=== PATIENT | male | born 1985 | race Caucasian/White ===

== ENCOUNTER 2017-09-09 10:09 | Emergency (ER) | payer OTHER ==
[2017-09-09] MEDS ORDERED: Lidocaine 1% PF 5 ML VIAL ONE (10:24)
[2017-09-09] MEDS ORDERED: Bacitracin Zinc 1 Packet ONE (11:26)
== END 2017-09-09 11:30 | disposition home or self-care (01) ==
LOC: SCSER 10:09
DX: S61.012A Laceration without foreign body of left thumb without damage to nail, initial encounter (principal); F41.9 Anxiety disorder, unspecified; F32.9 Major depressive disorder, single episode, unspecified; F43.10 Post-traumatic stress disorder, unspecified; W27.8XXA Contact with other nonpowered hand tool, initial encounter; Y99.0 Civilian activity done for income or pay
CPT/HCPCS: 12001; J2001

== ENCOUNTER 2018-06-02 23:13 | Emergency (ER) | payer SELFPAY ==
[2018-06-02 23:52] LABS: #Basophils 0.1 thou/uL (0.0-0.2); #Eosinphils 0.8 thou/uL (0.0-0.7); #Lymphocytes 2.9 thou/uL (1.20-3.40); #Monocytes 0.7 thou/uL (0.11-0.59); #Neutrophils 4.7 thou/uL (1.40-6.50); %Basophils 1.1 % (0.0-1.0); %Eosinophils 8.8 % (0.0-10.0); %Monocytes 7.3 % (0.0-10.0); %Neutrophils 50.9 % (42.0-75.0); Hemoglobin 13.9 g/dL (14.0-18.0); Mean Corpuscular HGB CONC 33.6 g/dL (32.0-36.0); Mean Corpuscular Hemoglobin 28.8 pg (27.0-31.0); Mean Corpuscular Volume 85.5 fL (78.0-98.0); Platelet Count 239 thou/uL (130-400); RBC Distribution Width 11.6 % (11.5-14.5); Red Blood Cell (RBC) Count 4.81 mill/uL (4.70-6.10); White Blood Cell (WBC) Count 9.2 thou/uL (4.8-10.8)
[2018-06-03] LABS: Bilirubin Negative (Negative); Blood, Urine Negative (Negative); Clarity CLEAR (Clear); Glucose, Urine (Dipstick) Negative (Negative); Leukocyte Negative (Negative); Nitrite Negative (Negative); Protein, Urine (Dipstick) Negative (Neg-Trace); Specific Gravity, Urine 1.026 (1.002-1.036); pH, Urine 6.5 (5.0-9.0)
[2018-06-03 00:12] LABS: ALT (SGPT) 12 U/L (8-55); AST (SGOT) 19 U/L (5-34); Albumin 4.5 g/dL (3.5-5.0); Alkaline Phosphatase 70 U/L (40-150); Anion Gap 11 mmol/L (10-20); BUN (Urea Nitrogen) 23 mg/dL (8.9-20.6); Bilirubin, Total 0.3 mg/dL (0.2-1.2); Calc. Creatinine Clearance 0 mL/min (70-130); Calcium 9.2 mg/dL (7.8-10.44); Carbon Dioxide 26 mmol/L (22-29); Chloride 105 mmol/L (98-107); Estimated GFR-MDRD 69; Globulin 2.6 g/dL (2.4-3.5); Glucose 118 mg/dL (70-105); Potassium 3.8 mmol/L (3.5-5.1); Protein, Total 7.1 g/dL (6.0-8.3); Sodium 138 mmol/L (136-145)
[2018-06-03] MEDS ORDERED: Ondansetron ODT 4 MG TAB ONE (01:43)
[2018-06-03] MEDS ORDERED: Ketorolac Tromethamine 30 MG/ML VIAL ONE (01:43)
[2018-06-03] MEDS ORDERED: cefTRIAXone\\ROCEPHIN 250 MG VIAL ONE (01:47)
[2018-06-03] MEDS ORDERED: Lidocaine 1% PF 5 ML VIAL ONE (01:47)
--- NOTE | 2018-06-03 07:21 | ULT ---
SCROTAL ULTRASOUND WITH PRADO SCALE AND DOPPLER COLOR FLOW IMAGING: CLINICAL INDICATION: Right hemiscrotal pain new onset. FINDINGS: Doppler evaluation does reveal flow to each testis without evidence of torsion. No intratesticular m ass. Mild, relative hyperemia of the right epididymis is present, although the right epididymis is n ot significantly enlarged. Small volume hydroceles are seen bilaterally. IMPRESSION: 1. No evidence of testicular torsion or mass. 2. Slight relative hyperemia of the right epididymis which may reflect changes of mild epididymitis in the correct clinical context. 3. Small volume hydrocele. POS: ADOLFO
[2018-06-05 21:28] LABS: Chlam.trachomatis by PCR,Urine Not Detected (NotDetected)
== END 2018-06-03 02:28 | disposition home or self-care (01) ==
LOC: ERS 23:13
DX: N43.3 Hydrocele, unspecified (principal); N45.1 Epididymitis; F41.9 Anxiety disorder, unspecified; F43.10 Post-traumatic stress disorder, unspecified
CPT/HCPCS: 36415; 76870; 80053; 81003; 85025; 87491; 87591; 93976; 96372; J0696; J1885; J2001; Q0162

== ENCOUNTER 2019-05-31 08:25 | Observation (INO) | payer OTHER ==
[2019-05-31] MEDS ORDERED: HYDROcodone/Acetaminophen 10/325 mg Tablet ONE (09:04)
[2019-05-31] MEDS ORDERED: Ondansetron PF 4 MG/2 ML Vial ONE ×2 (09:21→14:00)
[2019-05-31] MEDS ORDERED: Morphine 4 MG/ML VIAL ONE (09:21)
[2019-05-31] MEDS ORDERED: Fentanyl 100 MCG/2 ML VIAL ONE (11:23)
[2019-05-31] MEDS ORDERED: Ketorolac Tromethamine 30 MG/ML VIAL ONE (11:23)
[2019-05-31] MEDS ORDERED: Cyclobenzaprine 10 MG TAB ONE (11:32)
[2019-05-31] MEDS ORDERED: Diazepam 10 MG/2 ML SYRINGE ONE (12:20)
--- NOTE | 2019-05-31 14:25 | MRI ---
MRI CERVICAL SPINE WITHOUT CONTRAST: Date: 05/31/2019 COMPARISON: None. HISTORY: Patient woke up 3 days ago with bilateral arm numbness and weakness. TECHNIQUE: Multiplanar, multisequence MR images were obtained of the cervical spine without contrast. FINDINGS: The vertebral bodies and intervertebral discs demonstrate normal height and alignment without fractur e or subluxation. There is a well-circumscribed focus of high T2 signal within the C6 vertebral body which likely represents a hemangioma. The visualized cord demonstrates normal signal throughout. The prevertebral and paraspinal soft tissu es are unremarkable. The craniocervical junction is unremarkable. No significant posterior bulge or protrusion is seen throughout the cervical spine. No significant po sterior facet arthrosis. There is moderate narrowing of the central canal from C3-4 through C5-6 seco ndary to congenitally short pedicles. No neural foraminal stenosis is seen. IMPRESSION: 1. No signal abnormality seen in the cervical cord. 2. No significant degenerative changes. 3. 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 POS: RUBEN
[2019-05-31 15:30] LABS: Hemoglobin 13.5 g/dL (14.0-18.0); Mean Corpuscular HGB CONC 33.4 g/dL (32.0-36.0); Mean Corpuscular Hemoglobin 28.6 pg (27.0-31.0); Mean Corpuscular Volume 85.8 fL (78.0-98.0); Mean Platelet Volume 5.9 fL (7.4-10.4); Platelet Count 172 thou/uL (130-400); RBC Distribution Width 13.1 % (11.5-14.5); White Blood Cell (WBC) Count 9.7 thou/uL (4.8-10.8)
[2019-05-31 15:50] LABS: Anion Gap 12 mmol/L (10-20); BUN (Urea Nitrogen) 18 mg/dL (8.9-20.6); Band 24 % (5-11); Calc. Creatinine Clearance 0 mL/min (70-130); Calcium 8.5 mg/dL (7.8-10.44); Carbon Dioxide 27 mmol/L (22-29); Chloride 106 mmol/L (98-107); Eosinophils 3 % (0-10); Estimated GFR-MDRD Greater than 90; Glucose 123 mg/dL (70-105); Lymphocytes 14 % (21-51); MDiff Complete? YES; Monocytes 7 % (0-10); Neutrophil 12 % (42-75); Platelet Morphology Comment Appears Adequate; Polychromasia SLIGHT = 2-3 cells (100X) (0-2/hpf); Potassium 3.7 mmol/L (3.5-5.1); Reactive Lymphocytes 40 % (0-10); Reflex for Review?? YES; Sodium 141 mmol/L (136-145)
[2019-05-31] MEDS ORDERED: Gabapentin 100 MG CAP PO SCH (17:15)
--- NOTE | 2019-05-31 17:17 | RAD ---
THREE VIEWS OF THE RIGHT SHOULDER: COMPARISON: None. HISTORY: Right shoulder pain for one week. FINDINGS: Three views of the right shoulder shows no evidence of acute fracture or dislocation. No degenerative changes are seen. No soft tissue swelling is seen. IMPRESSION: No evidence of acute osseous abnormality. POS: EAA
[2019-05-31] MEDS ORDERED: Naproxen 500 MG TAB PO SCH (17:30)
[2019-05-31] MEDS ORDERED: Lidocaine 5% Patch TD SCH ×2 (17:45→21:00)
[2019-05-31] MEDS: Lidocaine 5% Patch TD SCH (19:24)
[2019-05-31 19:29] VITALS: BMI 23.8
[2019-05-31] MEDS ORDERED: Ondansetron ODT 4 MG TAB PO PRN (20:05)
[2019-05-31] MEDS ORDERED: Ondansetron PF 4 MG/2 ML Vial IVP PRN (20:05)
[2019-05-31] MEDS ORDERED: Acetaminophen 650 MG Suppository PR PRN (20:05)
--- NOTE | 2019-05-31 20:12 | PDOC.HHP ---
Hospitalist HPI - History of Present Illness Right arm pain/weakness History of Present Illness: Patient presents complaining of severe pain in right shoulder and arm for the last week with associated weakness and an area of numbness on the lateral aspect of the shoulder. Denies any trauma or injury. Complains of right neck pain. He has not seen his primary care physician. Per Dr. Vale who is the attending in the ED but did not see the patient, he saw patient at [facility] a week ago and patient with severe pain not responding to multiple interventions. Patient believed to be potentially drug seeking. 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 States in the past he has had similar pain on the left arm. ED Course: MRI cervical spine: 1. No signal abnormality seen in the cervical cord. 2. No significant degenerative changes. 3. 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 Right shoulder Xray was negative. Multiple medications given in the ED including cyclobenzaprine, diazepam, toradol, fentanyl, morphine and norco. Lidocaine patches placed as well. Patient states no relief. Hospitalist ROS - Review of Systems Constitutional: reports: other (reduced appetite since yesterday due to pain). denies: fever, chills, sweats, weakness, malaise Eyes: denies: pain, vision change, conjunctivae inflammation, eyelid inflammation, redness, other ENT: denies: ear pain, ear discharge, nose pain, nose discharge, nose congestion , mouth pain, mouth swelling, throat pain, throat swelling, other Respiratory: denies: cough, dry, shortness of breath, hemoptysis, SOB with excertion, pleuritic pain, sputum, wheezing, other Cardiovascular: denies: chest pain, palpitations, orthopnea, paroxysmal noc. dyspnea, edema, light headedness, other Gastrointestinal: denies: nausea, vomiting, abdominal pain, diarrhea, constipation, melena, hematochezia, other Genitourinary: denies: dysuria, frequency, incontinence, hematuria, retention, other Musculoskeletal: reports: neck pain, shoulder pain (right shoulder), arm pain ( right arm) Neurological: reports: weakness (with abduction and internal rotation of shoulder, increased pain in shoulder with pronation of arm), numbness ( paresthesias on right lateral shoulder) - Medication Medications: Active Medications Generic Name Dose Route Start Last Admin Trade Name Freq PRN Reason Stop Dose Admin Lidocaine 1 patch 06/01/19 21:00 05/31/19 19:24 Lidoderm 5% Patch TD 1 patch HS GIBSON Administration ALLERGIES: Sulfa drugs HOME MEDICATIONS: None. Hospitalist History - Past Medical History Source: patient Psych: reports: Anxiety, Depression - Past Surgical History Past Surgical History: reports: Other (Mastoidectomy.) - Family History Family History: reports: no pertinent history - Social History Smoking Status: Never smoker Alcohol: reports: None Drugs: reports: none Activity level: independent ambulation - Exam General - other findings: appears to be in discomfort, holding his Rt shoulder and wincing/groaning Eye: PERRL ENT: normocephalic atraumatic, dry oral mucosa Neck: supple, no lymphadenopathy Heart: RRR, no rubs, normal peripheral pulses Respiratory: CTAB, no wheezes, no rales, no ronchi, normal chest expansion, no tachypnea Gastrointestinal: soft, non-tender, non-distended, normal bowel sounds, no guarding, no rigidity Extremities: no edema Extremities - other findings: Right arm without any brusing, swelling, erythema or other abnormalities Neurological - other findings: right arm weak with abduction against resistance , able to flex/extend arms Musculoskeletal - other findings: 4/5 strength in RUE, full ROM in left arm Psychiatric: A&O x 3 Hospitalist Results - Labs Result Diagrams: 05/31/19 15:19 05/31/19 15:19 Lab results: WBC 9.7 thou/uL (4.8-10.8) 05/31/19 15:19 Hgb 13.5 g/dL (14.0-18.0) L 05/31/19 15:19 Hct 40.3 % (42.0-52.0) L 05/31/19 15:19 MCV 85.8 fL (78.0-98.0) 05/31/19 15:19 Plt Count 172 thou/uL (130-400) 05/31/19 15:19 Band Neuts % (Manual) 24 % (5-11) H 05/31/19 15:19 Sodium 141 mmol/L (136-145) 05/31/19 15:19 Potassium 3.7 mmol/L (3.5-5.1) 05/31/19 15:19 Chloride 106 mmol/L (98-107) 05/31/19 15:19 Carbon Dioxide 27 mmol/L (22-29) 05/31/19 15:19 BUN 18 mg/dL (8.9-20.6) 05/31/19 15:19 Creatinine 0.86 mg/dL (0.7-1.3) 05/31/19 15:19 Glucose 123 mg/dL (70-105) H 05/31/19 15:19 Calcium 8.5 mg/dL (7.8-10.44) 05/31/19 15:19 Hospitalist H&P A/P - Problem (1) Neck pain on right side Code(s): M54.2 - CERVICALGIA Status: Acute (2) Right shoulder pain Code(s): M25.511 - PAIN IN RIGHT SHOULDER Status: Acute (3) Appetite loss Code(s): R63.0 - ANOREXIA Status: Acute (4) Anxiety and depression Code(s): F41.9 - ANXIETY DISORDER, UNSPECIFIED; F32.9 - MAJOR DEPRESSIVE DISORDER, SINGLE EPISODE, UNSPECIFIED Status: Chronic - Plan Plan: Just given Naproxen and Gabapentin by RN, as ordered by Dr. Elliott. Will hold Toradol until later this evening, recommended by Dr. Hernandez. IV fluids, clinically dry and with reduced oral intake since yesterday. MRI right shoulder to assess for rotator cuff injury. Consult placed to physical therapy. Further work-up/management as per Dr. Elliott in the AM. Will check UDS. CODE STATUS FULL Surrogate decision maker: His Polina Schmidt.
[2019-05-31] MEDS: Sodium Chloride 0.9% 1,000 ML IV SCH (20:25)
[2019-05-31] MEDS: Acetaminophen 325 MG TAB PO PRN (22:01)
[2019-05-31] MEDS ORDERED: diphenhydrAMINE 12.5 MG/5 ML UDCUP PO SCH (22:15)
[2019-05-31] MEDS: Ketorolac Tromethamine 30 MG/ML VIAL IVP SCH (23:03)
[2019-05-31] MEDS ORDERED: Melatonin 3 MG TAB PO PRN (23:26)
[2019-06-01] MEDS ORDERED: Zolpidem Tartrate 5 MG TAB PO SCH (04:30)
[2019-06-01] MEDS: Ketorolac Tromethamine 30 MG/ML VIAL IVP SCH ×3 (05:05→17:45)
[2019-06-01 05:53] LABS: Hemoglobin 13.3 g/dL (14.0-18.0); Mean Corpuscular HGB CONC 33.8 g/dL (32.0-36.0); Mean Corpuscular Hemoglobin 29.1 pg (27.0-31.0); Mean Corpuscular Volume 86.1 fL (78.0-98.0); Mean Platelet Volume 6.1 fL (7.4-10.4); Platelet Count 191 thou/uL (130-400); RBC Distribution Width 13.2 % (11.5-14.5); Red Blood Cell (RBC) Count 4.56 mill/uL (4.70-6.10); White Blood Cell (WBC) Count 9.3 thou/uL (4.8-10.8)
[2019-06-01 05:58] LABS: Anion Gap 13 mmol/L (10-20); BUN (Urea Nitrogen) 21 mg/dL (8.9-20.6); Calc. Creatinine Clearance 115 mL/min (70-130); Calcium 8.2 mg/dL (7.8-10.44); Carbon Dioxide 22 mmol/L (22-29); Chloride 107 mmol/L (98-107); Estimated GFR-MDRD Greater than 90; Glucose 113 mg/dL (70-105); Sodium 138 mmol/L (136-145)
[2019-06-01 06:12] LABS: Band 7 % (5-11); Eosinophils 1 % (0-10); Lymphocytes 40 % (21-51); MDiff Complete? YES; Metamyelocyte 1 % (0-0); Monocytes 13 % (0-10); Neutrophil 27 % (42-75); Reactive Lymphocytes 11 % (0-10)
--- NOTE | 2019-06-01 08:09 | MRI ---
EXAM: MRI right shoulder PROVIDED CLINICAL HISTORY: Weakness and numbness COMPARISON: None FINDINGS: The components of the rotator cuff appear intact. The long head biceps tendon appears intact and norm ally located. The glenoid labrum and glenohumeral articular cartilage are suboptimally evaluated in the absence of joint distention but appear grossly normal. The amount of fluid within the glenohumera l joint is physiologic. No significant subacromial subdeltoid bursal fluid. Correlate clavicular joint appears unremarkable. There is mild patchy signal alteration on fluid sensitive sequences invol ving the posterior aspects of the deltoid muscle. Regional marrow and muscular signal appear otherwise normal. IMPRESSION: 1. No evidence for internal derangement. 2. Mild patchy signal alteration on fluid sensitive sequences involving the posterior right deltoid m uscle. Differential considerations would include muscular strain, denervation and nonspecific myositis.
[2019-06-01] MEDS: Acetaminophen 325 MG TAB PO PRN (08:48)
[2019-06-01] MEDS: Lidocaine Patch Removal 1 EACH TOP SCH (09:01)
[2019-06-01] MEDS: Gabapentin 300 MG CAP PO SCH ×2 (11:27→11:39)
[2019-06-01] MEDS ORDERED: tiZANidine HCl 4 MG TAB PO SCH ×3 (11:30→21:00)
[2019-06-01] MEDS ORDERED: predniSONE 20 MG TAB PO SCH (11:30)
[2019-06-01] MEDS: Sodium Chloride 0.9% 1,000 ML IV SCH (13:13)
--- NOTE | 2019-06-01 14:26 | CON ---
DATE OF CONSULTATION: This is Daniel Hlal PA-C dictating a report for Catrachito Engle MD. We were asked by our [facility] Hospitalist Service to see the patient. The patient for the last week and a half to 2 weeks has had this nontraumatic pain that varies from the right shoulder into his neck and occasionally into his forearm, but for the most part, it goes down from his neck and the lateral deltoid about mid upper arm and it has gotten progressively worse. He has tried Numersous different medications. He is on gabapentin. He got some steroids when he was outpatient, tramadol, some pain medications, anti-inflammatories, all of these appear not to touch his pain. He says he has a constant 7 and ramps up to 10. He is an EMT. He has not had any traumatic injuries or any injuries whatsoever that he can recall. He does note that he had some odd virus in the they say (the ) caused some " nerve damage to the upper arms," but he is unable to recall what this could have been. He has sensations down that arm. He can move everything from the elbow distally, but anything with movement of that neck or shoulder definitely is miserably painful. ALLERGIES: SULFA DRUGS. HOME MEDICATIONS: None. PAST MEDICAL HISTORY: Some anxiety and depression. PAST SURGICAL HISTORY: Mastoidectomy. FAMILY HISTORY: For this event is noncontributory. SOCIAL HISTORY: , children. Works as an EMT. No alcohol or nicotine products. No drug use whatsoever. REVIEW OF SYSTEMS: Only positive currently for pain. Otherwise, he is a healthy individual. Rest of review of systems negative. PHYSICAL EXAMINATION: NEUROLOGIC: Well-nourished, well-developed appearing male in obvious appearing distress. Speech is clear. He does have few bouts of moaning and tearfulness while I am talking to him, otherwise his speech is clear. Affect is okay. He is pleasant for the condition he is currently in. Oriented x3. HEENT: Face symmetric. Tongue midline. Normocephalic. NECK: Definitely listing to the right a little bit with some obvious muscle spasms. Movement of neck does increase pain to the neck and shoulder. EXTREMITIES: Upper extremities, looking at patient, he does have his right shoulder drop. This appears to be less painful from him, but otherwise looking at his upper extremities are equal size, shape, symmetry. Normal bulk and tone. Active passive range of motion of any of the upper arm and deltoid muscle group, whatsoever cause him pain. He is not able to rotate at all. Abduction and adduction are really painful. Palpation from the cervical musculature into the deltoid is quite tender. Audiometric Technician strength equal. Interosseous strength is great. Reflexes are diminished on the right compared to the left. He has a negative Carola's. Lower extremities; equal size, shape, symmetry. Normal bulk and tone. RESPIRATORY: No acute distress, 16 a minute. DIAGNOSTIC DATA: MRI cervical, for the most part, he has some degenerative changes, but otherwise no definitive reason for why he would have radiculopathy in that right upper extremity. Shoulder x-ray is negative. Shoulder MRI shows a little bit of deltoid myositis, but it is quite minimal. ASSESSMENT: Right upper extremity pain. PLAN: He does not have any clear surgical need. After going over the shoulder MRI with Dr. Engle, there is definitely no shoulder pathology that needs to be repaired. I did talk to Dr. Romero regarding the cervical MRI and he does not believe there is a surgical need there also or pathology that would be causing his pain, might talk to Dr. Elliott. I have explained the situation from our standpoint, he can go on some steroids. I did order a sedimentation rate and C-reactive protein and a sling, maybe this will help him. I definitely think he needs some physical therapy, occupational therapy, could a cervical epidural steroid injection help possibly, but we will see if normal med management, physical therapy, and occupational therapy can give him any relief. We will follow from the periphery, but we will review his labs to see how he is doing with PT. Job ID: [id number] [facility]
[2019-06-01] MEDS ORDERED: Gabapentin 300 MG CAP PO SCH (15:00)
--- NOTE | 2019-06-01 15:40 | PDOC.HOSPP ---
- Subjective Encounter Date: 06/01/19 Encounter Time: 12:00 Subjective: The patient reports severe right shoulder pain, started earlier this month. Stated that morphine helped slightly. No relief with toradol. He states gabapentin at high doses made him feel psychotic. He has not tried tizanidine. He states the pain is now spreading to his left side. 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 Per ortho, he will try to talk to Dr. Keenan and neurosurgery due to concerns of bone spurs in his neck causing pain. Dr. Romero stated that this was nonsurgical Per GEOCHEMIST, patient has received 7 day prescription of tramadol on 05/22 with valium and 2 day prescription of norco on 05/27 - Objective Vital Signs & Weight: Vital Signs (12 hours) Temp Pulse Resp BP Pulse Ox 06/01/19 04:38 97.7 F 82 18 136/84 98 Weight Admit Weight 156 lb 12.8 oz Weight 156 lb 12.8 oz Result Diagrams: 06/01/19 05:03 06/01/19 05:03 Hospitalist ROS - Review of Systems Constitutional: denies: fever, chills - Medication Medications: Active Medications Generic Name Dose Route Start Last Admin Trade Name Freq PRN Reason Stop Dose Admin Acetaminophen 650 mg 05/31/19 20:05 06/01/19 08:48 Tylenol PO 650 mg Q4H PRN Administration Headache/Fever/Mild Pain (1-3) Sodium Chloride 1,000 mls @ 65 mls/hr 05/31/19 20:15 06/01/19 13:13 Normal Saline 0.9% IV 1,000 mls .[id number] GIBSON Administration Ketorolac Tromethamine 15 mg 05/31/19 23:59 06/01/19 11:31 Toradol IVP 06/05/19 23:59 15 mg Q6HR GIBSON Administration Miscellaneous Medication 1 each 06/01/19 09:00 06/01/19 09:01 Lidocaine Patch Removal TOP Not Given DAILY GIBSON - Exam General Appearance: NAD, awake alert Eye: PERRL, anicteric sclera ENT: normocephalic atraumatic, no oropharyngeal lesions Neck: supple, symmetric, no JVD Heart: RRR, no murmur, no gallops, no rubs Respiratory: CTAB, no wheezes, no rales, no ronchi, rales Gastrointestinal: soft, non-tender, non-distended Extremities: no cyanosis, no clubbing, no edema Skin: normal turgor, no lesions, no rashes Neurological: cranial nerve grossly intact, normal sensation to touch, no focal deficits, no new deficit Neurological - other findings: pt unable to lift up his right arm due to pain. Musculoskeletal: normal tone, normal strength, no muscle wasting Hosp A/P - Plan 34 year old with right shoulder pain/neck pain Right shoulder pain/neck pain - MRI of right shoulder shows no significant abnormality. MRI cervical spine normal but shows some bone spurs - orthopedics consulted, recommended medrol dose pack and tizanidine - will try flexeril prn as well -toradol prn for pain - CRP elevated
[2019-06-01] MEDS ORDERED: Cyclobenzaprine 10 MG TAB PO PRN (15:43)
[2019-06-01] MEDS ORDERED: Diclofenac 1% 100 GM GEL TP SCH (18:45)
[2019-06-01 19:13] LABS: Medtox Reader # READER 4; Phencyclidine (PCP) Not Detected (NotDetected); THC/Cannabinoid Screen Not Detected (NotDetected)
[2019-06-01 19:14] LABS: Amphetamine Not Detected (NotDetected); Barbiturates Screen Not Detected (NotDetected); Benzodiazepine Screen Detected (NotDetected); Cocaine Metabolite Screen Not Detected (NotDetected); Medtox Control Line Valid? VALID (VALID); Methadone Not Detected (NotDetected); Methamphetamine Not Detected (NotDetected); Opiate Screen Detected (NotDetected); Oxycodone Screen Not Detected (NotDetected); Tricyclic Screen Not Detected (NotDetected)
[2019-06-01] MEDS: Diclofenac 1% 100 GM GEL TP SCH (20:28)
[2019-06-01] MEDS: Capsaicin 0.025% Cream 60 gm Tube TOP SCH (20:29)
[2019-06-01] MEDS: Gabapentin 100 MG CAP PO SCH (20:30)
[2019-06-01] MEDS: Lidocaine 5% Patch TD SCH (20:30)
[2019-06-01] MEDS ORDERED: diphenhydrAMINE 25 MG CAP PO SCH (22:30)
[2019-06-02] MEDS: Ketorolac Tromethamine 30 MG/ML VIAL IVP PRN ×2 (05:19→13:47)
[2019-06-02] MEDS: Acetaminophen 325 MG TAB PO PRN (05:21)
[2019-06-02] MEDS ORDERED: Morphine 4 MG/ML VIAL SLOW IVP SCH (05:45)
[2019-06-02] MEDS: tiZANidine HCl 4 MG TAB PO SCH ×2 (08:00→15:23)
[2019-06-02] MEDS: Gabapentin 100 MG CAP PO SCH ×2 (08:00→15:23)
[2019-06-02] MEDS: Lidocaine Patch Removal 1 EACH TOP SCH (08:01)
[2019-06-02] MEDS: Diclofenac 1% 100 GM GEL TP SCH ×2 (08:02→13:41)
[2019-06-02 11:39] VITALS: BP 112/73; TEMP 97.9
[2019-06-02] MEDS: Capsaicin 0.025% Cream 60 gm Tube TOP SCH ×2 (12:16→15:23)
--- NOTE | 2019-06-02 12:58 | DIS ---
DATE OF ADMISSION: 05/31/2019 DATE OF DISCHARGE: 06/02/2019 DISCHARGE DIAGNOSES: 1. Right arm and neck pain, possibly secondary to congenital short pedicles, degenerative disk disease with cervical radiculopathy versus viral myositis 2. Anemia. BRIEF HISTORY OF PRESENT ILLNESS: This is a 34-year-old male with no past medical history, who had presented with 1-week history of severe neck pain and right arm pain. The patient previously had gotten a prescription for Valium and tramadol on 05/22 with mild relief, however, he was not able to sleep and the pain continued to get worse. He described the pain as a burning pain radiating down his right arm. The patient stated that he had a previous episode similar to this, except at that time, he had fever and swollen axillary lymph nodes. He stated this was similar to prior shingles attack, except this time he did not have the lymphadenopathy or the fever. He went to [facility] again subsequently on the and received a two-day supply of [place]. Due to worsening weakness of his right arm, he presented to the ER. He had an MRI of his cervical spine which showed congenitally short pedicles in the ER with mild C5-C6 and C3-C4 narrowing of the central canal. He was given IV pain medications without relief and was admitted for further workup. HOSPITAL COURSE: Right arm/neck pain, likely secondary to cervical radiculopathy from congenitally short pedicles versus mild spinal stenosis versus viral myositis: The patient underwent a shoulder x-ray on the , which showed no evidence of acute osseous abnormality. He then underwent an upper extremity MRI of the shoulder, which showed no evidence of internal derangement and mild patchy signal alteration. CRP was elevated at 1.16 and ESR was normal. Orthopedics was consulted and felt that his pain was most likely originating from his neck due to his congenitally short pedicles. Daniel Hall with orthopedics spoke with Neurosurgery, who stated that this was non operable. I did speak with Pain Management about possibly doing a nerve block or epidural steroid injection; however, they are currently not doing any of these procedures at this time due to the harrison virus outbreak. The patient did report relief in his pain with tizanidine. He did not want gabapentin due to it making him "feel crazy."He was also prescribed lidocaine patch and capsaicin cream and diclofenac gel with mild improvement in his pain and will be discharged with these. Due TO CRP elevation, there was concern about myositis. He got prednisone 20 mg here and was advised to resume this daily for another 7 days. He was also given a prescription for Valtrex in the event that this is postherpetic neuralgia, which he can take for 7 days. He should follow up with his PCP in a week. He was also seen by occupational therapy who recommended outpatient massage therapist or chiropractor. Anemia: The patient had a hemoglobin of 13.3. His vitamin B12 was elevated and folate levels were normal. He should have this further worked up as an outpatient. Right arm pain: The patient was seen by Physical Therapy and Occupational Therapy. Currently trying to see if they can arrange him to get OT as an outpatient. DISCHARGE PHYSICAL EXAMINATION: VITAL SIGNS: Temperature 97.9, heart rate 75, respiratory rate 16, O2 saturation 96%, blood pressure 112/73. GENERAL: The patient is alert, awake, and oriented x3. CVS: Regular rate and rhythm with no murmurs, rubs, or gallops. LUNGS: Clear to auscultation bilaterally. ABDOMEN: Positive bowel sounds, soft, nontender, nondistended. NECK: No tenderness to palpation. EXTREMITIES: The patient does have some mild swelling noted in his right trapezius muscle that is slightly tender to palpation. He is unable to lift up his right arm due to pain. His reflexes are 1+ symmetrically bilaterally. He has intact sensation in both extremities. He has full range of motion of his left arm. He does not seem to have any tenderness on his right shoulder. Passive flexion extension of his elbow does not produce pain. PERTINENT LABORATORY DATA: CBC 05/31: Hemoglobin 13.3, hematocrit 39.3, white count 9.3, platelet count 191. BMP 05/31: Unremarkable. CRP: 1.16. B12: 1002. Folate: 9.0. U-tox: Positive for opiates and benzodiazepine. PERTINENT IMAGING: Shoulder X-ray 05/30: No evidence of acute osseous abnormality. MRI of the cervical spine without contrast 05/30: Shows moderate narrowing of the central canal from C3-C4-C5-C6 secondary to congenitally short pedicles. No significant degenerative changes. MRI of the upper extremity 05/31: Mild patchy signal alteration on fluid sensitive sequences involving the posterior right deltoid muscle. Differentials conclude muscular strain, denervation and nonspecific myositis. DISCHARGE CONDITION: Stable. ACTIVITY: As tolerated. DIET: Regular diet. DISCHARGE MEDICATIONS: New prescriptions: 1. Tizanidine 2 mg p.o. b.i.d. p.r.n. 2. Valtrex 1 mg p.o. t.i.d. for 7 days. 3. Lidocaine patch daily. 4. Diclofenac 2 g topical q.i.d. 5. Capsaicin topical t.i.d. DISCHARGE INSTRUCTIONS: The patient is to follow up with his PCP in a week. He should get a repeat CBC to follow up his anemia. He is advised that his pain may take a month to go away. Job ID: [id number] [facility]
== END 2019-06-02 15:20 | disposition home or self-care (01) ==
LOC: ERS 08:25 → T4-A 16:11
PROVIDERS: ADMIT Internal Medicine; ATTEND Internal Medicine
DX: M54.2 Cervicalgia (principal); R63.0 Anorexia; M25.511 Pain in right shoulder; D64.9 Anemia, unspecified; F41.9 Anxiety disorder, unspecified; F32.9 Major depressive disorder, single episode, unspecified; Z79.899 Other long term (current) drug therapy; Z88.2 Allergy status to sulfonamides; Z98.890 Other specified postprocedural states
CPT/HCPCS: 36415; 72141; 80048; 80306; 82550; 82607; 82746; 84443; 85025; 85060; 85652; 86140; 96374; 96375; 96376; G0378; J1885; J2270; J2405; J3010; J3360; J7512; Q0163

== ENCOUNTER 2024-10-04 22:10 | Emergency (ER) | payer OTHER, SELFPAY ==
[2024-10-04] MEDS ORDERED: Boostrix 0.5 ML (Tdap) VIAL (>/=7 yrs of age) ONE (22:29)
[2024-10-04 23:53] LABS: HIV (1/2) Antibody/Antigen NONREACTIVE (NonReactive); HIV 1/2 INDEX 0.06 S/CO (<1.00); Hep C Index 0.19 S/CO (0-0.79)
[2024-10-04 23:58] LABS: Hep C IgG Ab NONREACTIVE S/CO (NonReactive)
[2024-10-05 01:08] LABS: HBSAB Concentration 5724.74 mIU/mL
== END 2024-10-04 22:54 | disposition home or self-care (01) ==
LOC: ERS 22:10
DX: S80.872A Other superficial bite, left lower leg, initial encounter (principal); Z23 Encounter for immunization; Z79.899 Other long term (current) drug therapy; Y04.1XXA Assault by human bite, initial encounter; Y93.89 Activity, other specified; Y92.149 Unspecified place in prison as the place of occurrence of the external cause
CPT/HCPCS: 36415; 86706; 86803; 87389; 90471; 90715